=== PATIENT | male | born 1995 | race Caucasian/White ===

== ENCOUNTER 2022-06-02 08:14 | Emergency (ER) | payer BC, SELFPAY ==
[2022-06-02 08:15] VITALS: BP 155/81; PULSE 73; RESP 14; TEMP 36.6; O2SAT 98; BMI 22.2
[2022-06-02 08:30] VITALS: BP 134/93; PULSE 65; RESP 25; O2SAT 98
[2022-06-02] MEDS: DiphenhydrAMINE 50 MG/ML Syringe 25 MG IV (08:31)
[2022-06-02] MEDS: predniSONE 20 MG Tablet 60 MG PO (08:31)
--- NOTE | 2022-06-02 08:32 | EX.ED.DYSGE1 ---
HPI History of Present Illness Chief Complaint: Allergic Reaction Detail of Chief Complaint: Allergic reaction Informant: patient Onset/Context/Timing Onset: Days (Onset approximately 3 days ago) Context: Sudden Onset Timing: Continuous Quality: Raised erythematous pruritic generalized rash Location: Initially left upper extremity now generalized Current Severity: Moderate Maximum Severity: Moderate Worsened by: Itching Relieved by: Nothing Associated Symptoms Associated Symptoms: No symptoms of angioedema, respiratory, orthostasis, GI etc. Narrative Narrative: Patient is a 26-year-old male who presents with pruritic erythematous raised rash that started approximately 3 days ago. He has no inciting antigen to his knowledge. He denies ingestion of peanuts, shellfish or berries in the past several days. He denies prior allergic reaction. He denies swelling of his lips, tongue or throat. He denies change in voice or drooling. He denies shortness of breath or wheezing. He denies chest discomfort, lightheadedness or low blood pressure. He denies abdominal pain, vomiting or diarrhea. He states he took a Benadryl with no improvement. He has never been allergy tested. He does not know who his doctor is. Prior similar symptoms: No Recent Illness/Hospitalization: No PFSH PFSH Medical History no medical history no medical history Home Medications diphenhydramine HCl 25 mg capsule (Benadryl) 25 mg PO Q6H #20 caps 06/02/22 [Rx Last Taken Unknown] famotidine 20 mg tablet (Pepcid) 20 mg PO BID #10 tabs 06/02/22 [Rx Last Taken Unknown] Allergy/AdvReac Type Severity Reaction Status Date / Time No Known Allergies Allergy Verified 06/02/22 08:17 Surgical History no surgical history no surgical history Social History (Updated 06/02/22 @ 08:[address] Ronn Marcus MD) household members: none Smoking Status: Never smoker substance use type: does not use ROS ROS ED Constitutional Constitutional ED: Denies chills, fever(s), subjective, sweats or weight loss Eyes Eyes: Denies blurry vision, change in vision or diplopia ENT ENT ED: Denies ear pain, rhinorrhea or sore throat Cardiovascular Cardiovascular: Denies chest pain Respiratory/Chest Respiratory/Chest: Denies cough, dyspnea or dyspnea on exertion Gastrointestinal Gastrointestinal: Denies abdominal pain, diarrhea, nausea or vomiting Musculoskeletal Musculoskeletal: Denies arthralgias, back pain, myalgias or neck pain Integumentary Reports rash Neurologic Neurologic: Denies headache(s), paresthesias or weakness Hematologic/Lymphatic Hematologic/Lymphatic: Reports systems reviewed and no addt'l complaints, except as documented Allergic/Immunologic Allergic/Immunologic ED: Reports urticaria; Denies mouth swelling or tongue swelling EXAM Physical Exam Const Vital Signs: 06/02/22 08:15 06/02/22 08:30 Temperature 97.9 F Temperature Source Temporal Pulse Rate 73 65 Respiratory Rate 14 25 H Blood Pressure 155/81 H 134/93 H Blood Pressure Mean 105 106 Pulse Ox 98 98 Oxygen Delivery Method Room Air Room Air Positive well nourished and well developed General Appearance ED: well developed and NAD; Negative for pallor HEENT Reports moist mucous membranes HEENT Narrative: There is no evidence of angioedema. Ears normal. Nares patent. Posterior pharynx erythema or exudate. Eyes PERRL and EOMs intact bilaterally Eyes Narrative: Conjunctive is pink. There is no evidence of inflammation. General Eye ED: Negative for pale conjunctiva or scleral icterus Neck no lymphadenopathy, supple and no JVD Neck Narrative: Trachea is midline. There is no inspiratory stridor. Chest Wall inspection of chest normal and palpation of chest normal Resp normal respiratory effort and clear to auscultation bilaterally Cardio regular rate, regular rhythm, S1 normal heart sound, S2 normal heart sound and no murmurs GI normal to inspection, nondistended, normoactive bowel sounds, non-tender, non-distended and no masses; Negative for hepatosplenomegaly Back/Spine no CVA tenderness Extremity normal to inspection Neuro oriented x3, CN's II-XII intact bilaterally and no sensory deficits noted Sensorium / Orientation: alert Psych mental status grossly normal Skin no wounds and skin turgor normal Skin Narrative: Patient has a erythematous blanching raised pruritic rash involving the extremities and torso. General Skin Exam: elasticity normal; Negative for jaundice or pallor MDM MDM MDM Narrative Medical decision making narrative: Patient presents with urticaria that has gotten worse. The inciting agent is unknown. Patient was treated with IV Benadryl and Pepcid and p.o. prednisone. Since there is no hemodynamic instability, respiratory symptoms or angioedema epinephrine was not administered. Review of outside records using [facility] indicates patient's had GI work-up. Review of documents indicates patient has no allergies. GI work-up was unremarkable. Patient was reexamined at 0900. His rash has improved markedly. He is no longer itching. He has had 75% resolution. He was discharged with prescription for H1 and H2 gonzalo and instructed to follow-up with his doctor for allergy testing. Discharge Plan Triage Chief Complaint: Allergic Reaction ED Provider: Ronn Marcus Dx/Rx/DC Orders Clinical Impression: Urticaria of unknown origin Instructions: ED Hives (Adult) Prescriptions: New famotidine [Pepcid] 20 mg tablet 20 mg PO BID Qty: 10 0RF diphenhydramine HCl [Benadryl] 25 mg capsule 25 mg PO Q6H Qty: 20 0RF Primary Care Provider: Care Physician,No Primary Referrals: Care Physician,No Primary [Primary Care Provider] - Doctor,Your [Non-Staff] - 3-5 Days Activity Restrictions/Additional Instructions: The name of your doctor is located on your insurance card Recommend calling for outpatient allergy testing. Disposition Disposition: Home, Self Care
[2022-06-02] MEDS: Famotidine 200 MG/20 ML MDV 20 MG in 0.9% Normal Saline (Pres. free 8 ML 300 MG IV (08:44)
[2022-06-02 09:13] VITALS: BP 124/71; PULSE 69; RESP 17; O2SAT 95
== END 2022-06-02 09:14 | disposition home or self-care (01) ==
PROVIDERS: Emergency Provider Emergency Medicine; Visit Provider Emergency Medicine
DX: T78.40XA Allergy, unspecified, initial encounter (principal); L50.9 Urticaria, unspecified; X58.XXXA Exposure to other specified factors, initial encounter
CPT/HCPCS: 96365; 96375; 99283; A4216; J3490

== ENCOUNTER 2022-06-03 05:30 | Emergency (ER) | payer BC, SELFPAY ==
[2022-06-03 05:30] VITALS: BP 163/81; PULSE 84; RESP 20; TEMP 36.8; O2SAT 100; BMI 25.5
--- NOTE | 2022-06-03 05:55 | EX.ED.DYSGE1 ---
HPI History of Present Illness Chief Complaint: Shortness of Breath Narrative Narrative: Patient is a 26-year-old male with no reported significant past medical history . He was seen yesterday secondary to hives and diagnosed with urticaria and placed on Pepcid and Benadryl. He states that he was going through his house and he cannot think of any new exposures and he states no one else has the rash. He states that he was given Pepcid and Benadryl in the ER and his symptoms resolved and then he took it later that evening. He states he woke however with increased itching and rash and felt slightly short of breath. He states that this shortness of breath was new compared to yesterday and this concerned him so he presents to the ER for evaluation. PFSH PFSH Medical History no medical history no medical history Home Medications diphenhydramine HCl 25 mg capsule (Benadryl) 25 mg PO Q6H #20 caps 06/02/22 [Rx Last Taken Unknown] famotidine 20 mg tablet (Pepcid) 20 mg PO BID #10 tabs 06/02/22 [Rx Last Taken Unknown] prednisone 20 mg tablet 40 mg PO DAILY 5 days #10 tabs 06/03/22 [Rx Last Taken Unknown] Allergy/AdvReac Type Severity Reaction Status Date / Time No Known Allergies Allergy Verified 06/03/22 05:35 Social History (Updated 06/02/22 @ 08:[address] Ronn Marcus MD) household members: none Smoking Status: Current every day smoker tobacco type: e-cigarettes substance use type: does not use ROS ROS ED Constitutional Constitutional ED: Denies chills or fever(s) ENT ENT ED: Denies sore throat Cardiovascular Cardiovascular: Denies chest pain Respiratory/Chest Respiratory/Chest: Reports dyspnea; Denies cough Gastrointestinal Gastrointestinal: Denies abdominal pain, diarrhea, nausea or vomiting Genitourinary Genitourinary ED: Denies dysuria Musculoskeletal Musculoskeletal: Denies myalgias Integumentary Reports rash Neurologic Neurologic: Denies headache(s) Hematologic/Lymphatic Hematologic/Lymphatic: Denies easy bleeding or easy bruising EXAM Physical Exam Const Vital Signs: 06/03/22 05:30 06/03/22 05:30 Temperature 98.3 F Temperature Source Oral Pulse Rate 84 Respiratory Rate 20 H Respiratory Effort Short of Breath Respiratory Depth Shallow Respiratory Pattern Tachypnea Blood Pressure 163/81 H Blood Pressure Mean 108 Pulse Ox 100 Oxygen Delivery Method Room Air Room Air Positive well nourished and well developed General Appearance ED: well developed HEENT Reports moist mucous membranes HEENT Narrative: No tongue or lip swelling. No oral lesions. No airway edema or compromise Eyes PERRL and EOMs intact bilaterally Neck supple Resp normal respiratory effort and clear to auscultation bilaterally Cardio regular rate and regular rhythm Extremity normal to inspection Neuro oriented x3 and CN's II-XII intact bilaterally Sensorium / Orientation: alert Psych mental status grossly normal Skin Skin Narrative: Patient has erythematous blanchable urticaria present on bilateral arms his chest and abdomen as well as back and legs. There are also lesions across his face. However there is no involvement of the palms or soles. No vesicular or pustule changes. No secondary changes to suggest infection MDM MDM MDM Narrative Medical decision making narrative: Patient presented to the ER in no acute respiratory distress satting 100% on room air and speaking in full sentences. He did have urticaria present on his body which is consistent with his report and diagnosis from the previous day. He states that he does not know of any new exposure at home and that no one else has the rash. The rash at this time looks very inflammatory and not infectious in nature and without signs of respiratory distress or oral lesions I do not feel there is need for work-up concerning infectious process such as erythema multiforme Henoch-Burt?nlein purpura or Freire-Deepak syndrome. Patient will be given Benadryl and Pepcid as he states this helped him yesterday and prednisone will be added. At this time as he is not requiring supplemental oxygen or in respiratory distress there is no need for further treatment or work-up and he is otherwise safe for discharge Discharge Plan Triage Chief Complaint: Shortness of Breath ED Provider: Aries Hassan Dx/Rx/DC Orders Clinical Impression: Urticaria of unknown origin Instructions: ED Russell (Adult) Prescriptions: New prednisone 20 mg tablet 40 mg PO DAILY 5 Days Qty: 10 0RF No Action famotidine [Pepcid] 20 mg tablet 20 mg PO BID Qty: 10 0RF diphenhydramine HCl [Benadryl] 25 mg capsule 25 mg PO Q6H Qty: 20 0RF Primary Care Provider: Care Physician,No Primary Referrals: Delia Horta MD [Med Staff - Director Of Physician Practices] - Care Physician,No Primary [Primary Care Provider] - Activity Restrictions/Additional Instructions: You were given your daily dose of steroids/prednisone and Pepcid in the ER today. You may take Benadryl another 2 or 3 times a day if needed. You can use the inhaler up to 6 times a day or every 4 hours if you feel short of breath. Please continue to take your steroid Pepcid and Benadryl for the next 5 days to help prevent any further allergic reaction or rebound. Please return to the ER should you have any further concerns Disposition Disposition: Home, Self Care
[2022-06-03] MEDS: Albuterol Sulfate 8 gm Inhaler (60 puffs) 2 PUFF INHALATION (05:59)
[2022-06-03] MEDS: predniSONE 20 MG Tablet 60 MG PO (05:59)
[2022-06-03] MEDS: Famotidine 20 MG Tablet 40 MG PO (06:00)
[2022-06-03] MEDS: DiphenhydrAMINE 25 MG Capsule 50 MG PO (06:00)
== END 2022-06-03 06:11 | disposition home or self-care (01) ==
PROVIDERS: Emergency Provider Emergency Medicine; Visit Provider Emergency Medicine
DX: R06.02 Shortness of breath (principal); F17.290 Nicotine dependence, other tobacco product, uncomplicated; L50.9 Urticaria, unspecified; Z79.52 Long term (current) use of systemic steroids
CPT/HCPCS: 99283

== ENCOUNTER 2022-09-23 15:22 | Emergency (ER) | payer BC, SELFPAY ==
[2022-09-23 15:23] VITALS: BP 131/78; PULSE 84; RESP 19; TEMP 36.8; O2SAT 98; BMI 24.9
--- NOTE | 2022-09-23 15:29 | EDS_ITS ---
HPI <LLOYD Lott - Last Filed: 09/23/22 16:05> History of Present Illness Chief Complaint: Dental Narrative Narrative: Patient having a couple days of pain in his right lower molar. It is partially missing and its caused infections in the past. He is not able to get in the dentist. No fever chills nausea vomiting or difficulty swallowing or breathing. PFSH <LLOYD Lott Last Filed: 09/23/22 16:05> PFSH Medical History no medical history Home Medications diphenhydramine HCl 25 mg capsule (Benadryl) 25 mg PO Q6H #20 caps 06/02/22 [Rx Last Taken Unknown] famotidine 20 mg tablet (Pepcid) 20 mg PO BID #10 tabs 06/02/22 [Rx Last Taken Unknown] prednisone 20 mg tablet 40 mg PO DAILY 5 days #10 tabs 06/03/22 [Rx Last Taken Unknown] penicillin V potassium 500 mg tablet 500 mg PO 4X/DAY #40 tabs 09/23/22 [Rx Last Taken Unknown] Allergy/AdvReac Type Severity Reaction Status Date / Time No Known Allergies Allergy Verified 06/03/22 05:35 Social History (Updated 06/02/22 @ 08:[address] Ronn Marcus MD) household members: none Smoking Status: Current every day smoker tobacco type: e-cigarettes substance use type: does not use ROS <LLOYD Lott - Last Filed: 09/23/22 16:05> ROS ED ROS Narrative Constitutional: Negative for fever, chills, malaise. ENT: Negative for sore throat. CVS: Negative for chest pain. Respiratory: Negative for shortness of breath. GI: Negative for nausea, vomiting. Neuro: Negative for headache. EXAM <LLOYD Lott Last Filed: 09/23/22 16:05> Physical Exam Narrative Exam Narrative: CONST: Patient sitting in no acute distress. EYES: Normal inspection. ENT: Poor dentition, right lower back molar is partially missing and has caries. Tender to palpation, no periapical abscess, sublingual space is soft, no trismus or tongue elevation, uvula midline with airway patent, no drooling or stridor. NECK: Normal inspection. Trachea midline. RESP: No respiratory distress, CTAB. CVS: Regular rate and rhythm, no murmur, no gallop. SKIN: Color normal, no rash, warm, dry, intact. EXTREMITIES: Normal appearance, no pedal edema. NEURO: Oriented x4. PSYCH: Normal affect. Const Vital Signs: 09/23/22 15:23 Temperature 98.2 F Temperature Source Temporal Pulse Rate 84 Respiratory Rate 19 H Blood Pressure 131/78 H Blood Pressure Mean 95 Pulse Ox 98 Oxygen Delivery Method Room Air <Dr. Maribel Yu DO - Last Filed: 09/23/22 17:18> Physical Exam Const Vital Signs: 09/23/22 15:23 Temperature 98.2 F Temperature Source Temporal Pulse Rate 84 Respiratory Rate 19 H Blood Pressure 131/78 H Blood Pressure Mean 95 Pulse Ox 98 Oxygen Delivery Method Room Air [facility] <LLOYD Lott - Last Filed: 09/23/22 16:05> [facility] Narrative Medical decision making narrative: Patient has poor dentition presenting with right lower molar pain. This tooth does appear to be partially missing and is tender but there is no sign of abscess. No Deangelo's angina. Airway patent. He will be started on penicillin and should continue Tylenol and ibuprofen. I provided dental referrals and he was discharged in stable condition. <Dr. Maribel Yu, - Last Filed: 09/23/22 17:18> [facility] Narrative Medical decision making narrative: Patient has poor dentition presenting with right lower molar pain. This tooth does appear to be partially missing and is tender but there is no sign of abscess. No Deangelo's angina. Airway patent. He will be started on penicillin and should continue Tylenol and ibuprofen. I provided dental referrals and he was discharged in stable condition. I have personally performed a face to face assessment of the patient and have reviewed the LISA Note. I performed a substantive portion of the visit including all aspects of the following. My alejo findings include: History is patient is a 27-year-old male presenting with worsening left lower dental pain in the area of his third molar. He does smoke cigarettes. He has known poor dentition. No significant swelling of his jaw or mouth. No difficulty swallowing. No change in speech. Patient is hoping to receive antibiotics to prevent this from getting worse. Patient be treated as a dental abscess. Given dental referral sheet. Counseled that he really should quit smoking as this is making his dental problems worse. He verbalizes agreement nursing this plan. Discharged home in stable condition. Is given return precautions. Other additions or changes: [None] Discharge Plan Triage Chief Complaint: Dental ED Midlevel Provider: Josette Boyce ED Provider: Maribel Yu Dx/Rx/DC Orders Clinical Impression: Dental abscess Instructions: Dental Abscess Prescriptions: New penicillin V potassium 500 mg tablet 500 mg PO 4X/DAY Qty: 40 0RF No Action famotidine [Pepcid] 20 mg tablet 20 mg PO BID Qty: 10 0RF diphenhydramine HCl [Benadryl] 25 mg capsule 25 mg PO Q6H Qty: 20 0RF prednisone 20 mg tablet 40 mg PO DAILY 5 Days Qty: 10 0RF Primary Care Provider: Care Physician,No Primary Referrals: Care Physician,No Primary [Primary Care Provider] - Activity Restrictions/Additional Instructions: Take the antibiotics and continue Tylenol and ibuprofen as needed. Follow-up with a dentist. Disposition Disposition: Home, Self Care Discharge Date/Time: 09/23/22 16:14
== END 2022-09-23 16:14 | disposition home or self-care (01) ==
PROVIDERS: Emergency Provider Emergency Medicine; Visit Provider Emergency Medicine
DX: K04.7 Periapical abscess without sinus (principal); F17.290 Nicotine dependence, other tobacco product, uncomplicated; F17.210 Nicotine dependence, cigarettes, uncomplicated
CPT/HCPCS: 99282

== ENCOUNTER 2022-09-25 07:30 | Emergency (ER) | payer BC, SELFPAY ==
[2022-09-25 07:32] VITALS: BP 154/92; PULSE 88; RESP 16; TEMP 36.6; O2SAT 99; BMI 24.3
--- NOTE | 2022-09-25 08:11 | EX.ED.VIS.UR ---
HPI HPI - URI History of Present Illness Chief Complaint: Sore Throat Onset/Context/Timing Onset: Days (5) Context: Gradual Onset Timing: Continuous Quality: Throbbing Location: Right jaw and neck Worsened by: Swallowing and Eating Solids Relieved by: - (Nothing) Associated Symptoms Associated Symptoms: Positive for Headache, Nausea, Shortness of Breath and Chest Pain; Negative for Nasal Congestion, Sinus Pressure, Myalgias, Vomiting, Diarrhea, Nonproductive cough, Hemoptysis or Productive Cough Narrative Narrative: Patient presents with a sore throat that has been getting worse over the past 5 days. Patient states he was recently started on penicillin for a dental infection. Patient states that he began feeling nauseated after taking the penicillin. Patient states his pain is now spreading to the right side of his neck. Patient states it is worse with swallowing. Patient describes his pain as throbbing. Patient states nothing makes it better. Patient admits to occasional pain in the right side of his chest. Patient also admits to occasional shortness of breath. ROS ROS ED Constitutional Constitutional ED: Reports chills and subjective; Denies fever(s) Eyes Eyes: Denies blurry vision or change in vision ENT ENT ED: Denies rhinorrhea or sore throat Cardiovascular Cardiovascular: Reports chest pain; Denies palpitations Respiratory/Chest Respiratory/Chest: Reports dyspnea; Denies cough Gastrointestinal Gastrointestinal: Reports nausea; Denies vomiting Genitourinary Genitourinary ED: Denies dysuria or hematuria Musculoskeletal Musculoskeletal: Reports neck pain; Denies back pain Integumentary Denies abscess or rash Neurologic Neurologic: Denies headache(s) or weakness Allergic/Immunologic Allergic/Immunologic ED: Denies mouth swelling or urticaria PFSH PFSH Medical History no medical history Home Medications diphenhydramine HCl 25 mg capsule (Benadryl) 25 mg PO Q6H #20 caps 06/02/22 [Rx Last Taken Unknown] famotidine 20 mg tablet (Pepcid) 20 mg PO BID #10 tabs 06/02/22 [Rx Last Taken Unknown] prednisone 20 mg tablet 40 mg PO DAILY 5 days #10 tabs 06/03/22 [Rx Last Taken Unknown] amoxicillin 875 mg-potassium clavulanate 125 mg tablet 875 mg PO Q12H #20 TABLETS 09/25/22 [Rx Last Taken Unknown] Allergy/AdvReac Type Severity Reaction Status Date / Time No Known Allergies Allergy Verified 06/03/22 05:35 Surgical History (Updated 09/25/22 @ 08:[address] Geo Frausto DO) S/P tendon repair Social History household members: none Smoking Status: Current every day smoker tobacco type: e-cigarettes substance use type: does not use EXAM Physical Exam Const Vital Signs: 09/25/22 07:32 Temperature 97.8 F Temperature Source Temporal Pulse Rate 88 Respiratory Rate 16 Blood Pressure 154/92 H Blood Pressure Mean 112 Pulse Ox 99 Oxygen Delivery Method Room Air Positive well nourished and well developed General Appearance ED: well developed and NAD HEENT Reports moist mucous membranes HEENT Narrative: Oropharynx is erythematous. There are no exudates noted. There is no unilateral swelling of the tonsils. Airway is patent. There is no trismus. normocephalic Neck supple, no meningeal signs and no JVD Neck Narrative: There is mild tenderness just below the angle of the jaw on the right. There is some mild lymphadenopathy in this area. There is no erythema or warmth. General: lymphadenopathy anterior cervical Resp normal respiratory effort and clear to auscultation bilaterally Cardio Rate: regular rate Rhythm: regular rhythm Neuro oriented x3, CN's II-XII intact bilaterally and no sensory deficits noted Sensorium / Orientation: alert Motor Exam: strength 5/5 throughout MDM MDM MDM Narrative Medical decision making narrative: Differential diagnosis includes peritonsillar abscess, submandibular abscess, pharyngitis, and dental infection. CT scan of the soft tissue neck will be obtained to assess for abscess. CBC will be obtained to assess for leukocytosis and anemia. Basic metabolic profile will be obtained to assess for renal function and electrolyte abnormality. Lab Data Attestation: I reviewed the patient's lab results. Lab results narrative: CBC was reviewed and shows a mild leukocytosis of 13.7. Basic metabolic profile was reviewed and was within normal limits. Labs: Laboratory Results - last 24 hr 09/25/22 09/25/22 08:20 08:20 WBC 13.7 H RBC 4.99 Hgb 14.0 Hct 42.1 MCV 84.4 MCH 28.1 MCHC 33.3 RDW Std Deviation 40.0 RDW Coeff of Dania 13.0 Plt Count 291 MPV 9.3 Immature Gran % (Auto) 0.400 Neut % (Auto) 68.9 Lymph % (Auto) 21.7 [place] % (Auto) 7.7 Eos % (Auto) 1.0 Baso % (Auto) 0.3 Absolute Neuts (auto) 9.4 H Absolute Lymphs (auto) 2.97 Nucleated RBC % 0 Sodium 138 Potassium 3.9 Chloride 105 Carbon Dioxide 27.0 Anion Gap 6 BUN 20 H Creatinine 0.89 Estim Creat Clear Calc 128.73 Est GFR (MDRD) Af Amer 131 Est GFR (MDRD) Non-Af 108 BUN/Creatinine Ratio 22.4 H Glucose 94 Calcium 9.6 Radiography Diagnostic Testing: Clinical Impression(s) from Imaging Studies Soft Tissue Neck CT 09/25/22 08:17 IMPRESSION: Focal area of nondescript contrast enhancement is seen in the right infratemporal region. No definite abscess or mass effect is seen. No bony destruction is present. Electronically Signed: Brijesh Cancino MD at 9:07 EDT , CT scan of the soft tissue neck was obtained. There is a focal area of nondescript contrast-enhancement in the right infratemporal area. There is no abscess or mass noted. There is no bony destruction noted. This was interpreted by the radiologist and was also independently reviewed by myself. Treatment and Re-Evaluation Narrative: Patient was given IV fluids. Patient was given a dose of Unasyn. Patient is feeling better on reevaluation. Patient was instructed to stop the Pen-Vee K. Patient was given a prescription for Augmentin. Patient was instructed to follow-up with his primary care physician in 5 to 7 days. Patient was also instructed to follow-up with his dentist. Patient understood and was agreeable with the plan. All questions were answered. Discharge Plan Triage Chief Complaint: Sore Throat ED Provider: Geo Frausto Dx/Rx/DC Orders Clinical Impression: Dental abscess, Tobacco use Instructions: ED Dental Abscess Prescriptions: New amoxicillin-pot clavulanate [amoxicillin-pot clavulanate] 875-125 mg tablet 875 mg PO Q12H Qty: 20 0RF Discontinued penicillin V potassium 500 mg tablet 500 mg PO 4X/DAY Qty: 40 0RF No Action famotidine [Pepcid] 20 mg tablet 20 mg PO BID Qty: 10 0RF diphenhydramine HCl [Benadryl] 25 mg capsule 25 mg PO Q6H Qty: 20 0RF prednisone 20 mg tablet 40 mg PO DAILY 5 Days Qty: 10 0RF Primary Care Provider: Care Physician,No Primary Referrals: Care Physician,No Primary [Primary Care Provider] - Disposition Disposition: Home, Self Care
--- NOTE | 2022-09-25 08:17 | CT_ITS ---
STUDY: CT SOFT TISSUE NECK WITH CONTRAST REASON FOR EXAM: Male, 27 years old. Palpable lump in the right side of the neck. Dental infection. RADIATION DOSAGE (If Supplied By Facility): CTDIvol = ( 15.91 ) mGy, DLP = ( 476.97 ) mGycm TECHNIQUE: The patient was scanned in a multi-detector CT scanner. High resolution transaxial imaging was performed following intravenous administration of IV 75mL Isovue-370. Sagittal and coronal images were reconstructed. Individualized dose optimization techniques were used for this CT. COMPARISON: None. FINDINGS: Normal bilateral parotid glands. Normal bilateral tank charger spaces. Normal bilateral parapharyngeal spaces. Normal bilateral carotid spaces. Normal bilateral sublingual and submandibular glands and spaces. Ill-defined area of the contrast enhancement is seen in the right infratemporal fossa. No paola mass is seen. No bony destruction is present. Normal visualized nasopharynx. Normal retropharyngeal space. Normal perivertebral space. Normal visualized bilateral faucial tonsils. The visualized tongue, tongue base and oropharynx are normal. The visualized cervical lymph nodes (levels I-) are within normal size limits, and maintain normal morphology. There is no demonstrated solid or cystic mass lesion. There is no abnormal contrast enhancement. Normal epiglottis, bilateral vallecula and hypopharynx. The pre-epiglottic and paraglottic adipose spaces are normal. Normal visualized bilateral piriform sinuses, aryepiglottic folds, vocal cords, and arytenoid-cricoid articulations. Normal subglottic trachea. Normal bilateral lobes of the thyroid gland. Normal visualized pulmonary apices. Normal visualized paranasal sinuses. Normal visualized cervical spine. CT/Soft Tissue Neck WITH Contrast IMPRESSION: Focal area of nondescript contrast enhancement is seen in the right infratemporal region. No definite abscess or mass effect is seen. No bony destruction is present. Electronically Signed: Brijesh Cancino MD at 9:07 EDT ,
[2022-09-25 08:36] LABS: Absolute Lymphocyte Count 2.97 X10^3/uL (0.83-4.51); Absolute Neutrophil Count 9.4 X10^3/uL (2.0-7.7); Basophil# 0.04 X10^3/uL; Basophil% 0.3 % (0-1); Eosinophil# 0.13 X10^3/uL; Hematocrit 42.1 % (40-54); Lymphocyte # 2.97 X10^3/ul (0.83-4.51); Lymphocyte % 21.7 % (19-41); Mean Corp Hgb Conc 33.3 g/dL (32-36); Mean Corpuscular Hgb 28.1 pg (27.0-32.0); Mean Corpuscular Volume 84.4 fL (80-94); Mean Platelet Vol. 9.3 fl (6.2-12.0); Monocyte# 1.05 X10^3/uL; Monocyte% 7.7 % (0-10); NRBC Flagged by Analyzer 0 % (0-5); Neutrophil # 9.42 X10^3/uL (2.7-7.7); Neutrophil % 68.9 % (47-70); Platelet Count 291 K/mm3 (150-450); Red Blood Count 4.99 M/mm3 (4.6-6.2); White Blood Count 13.7 K/mm3 (4.4-11.0)
[2022-09-25] MEDS: 0.9% Normal Saline 1,000 ML 1000 ML IV (08:50)
[2022-09-25 08:52] LABS: Anion Gap 6 (5-15); BUN 20 mg/dL (7-18); BUN/Creat Ratio 22.4 RATIO (10-20); Calcium,Total 9.6 mg/dL (8.5-10.1); Chloride 105 mmol/L (98-107); Creatinine, Serum 0.89 mg/dL (0.70-1.30); EST Glomerular Filtration Rate 108 mL/min (>60); Est Glom Filt Rate - Afr Amer 131 mL/min (>60); Estimated Creatinine Clearance 128.73 ml/min; Glucose 94 mg/dL (74-106); Potassium 3.9 mmol/L (3.5-5.1); Sodium Level 138 mmol/L (136-145)
[2022-09-25 09:52] VITALS: BP 122/74; PULSE 68; RESP 15; O2SAT 99
== END 2022-09-25 09:53 | disposition home or self-care (01) ==
PROVIDERS: Emergency Provider Emergency Medicine; Visit Provider Emergency Medicine
DX: K04.7 Periapical abscess without sinus (principal); R06.02 Shortness of breath; R51.9 Headache, unspecified; J02.9 Acute pharyngitis, unspecified; R07.9 Chest pain, unspecified; F17.290 Nicotine dependence, other tobacco product, uncomplicated
CPT/HCPCS: 70491; 80048; 85025; 96365; 99283; Q9967; A4216; J0295

== ENCOUNTER 2022-11-30 00:18 | Emergency (ER) | payer OTHER, BC, SELFPAY ==
[2022-11-30 00:19] VITALS: BP 135/86; PULSE 74; RESP 18; TEMP 36.4; O2SAT 98; BMI 23.8
[2022-11-30 01:05] VITALS: PULSE 68; RESP 15; O2SAT 98
--- NOTE | 2022-11-30 01:06 | EDS_ITS ---
HPI History of Present Illness Chief Complaint: Back Informant: patient Narrative Narrative: Patient is a 27-year-old male no significant past medical history presenting with acute worsening of left-sided back pain rating to his ribs. 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 He states they were a anywhere to a couple pounds up to 40 to 50 pounds. 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 Yesterday he was having back pain throughout his shift however it got worse throughout the day and was not relieved with rest. He is taken NSAIDs with no relief. He states it feels like it comes from his left shoulder blade and goes around to his chest. He states if he is picking something up or doing certain movement he will feel like his chest is going to pop. He has been trying Lidoderm cream on his chest all day with no relief. 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 Denies any new trauma or injury. Denies any rash. Denies any difficulty breathing. No other complaints at this time. PFSH PFSH Allergy/AdvReac Type Severity Reaction Status Date / Time No Known Allergies Allergy Verified 11/30/22 00:24 Surgical History S/P tendon repair Social History household members: none Smoking Status: Current every day smoker tobacco type: e-cigarettes substance use type: does not use ROS ROS ED Constitutional Constitutional ED: Denies chills or fever(s) Cardiovascular Cardiovascular: Reports chest pain; Denies palpitations Respiratory/Chest Respiratory/Chest: Denies dyspnea Gastrointestinal Gastrointestinal: Denies abdominal pain Musculoskeletal Musculoskeletal: Reports back pain; Denies arthralgias or neck pain Integumentary Denies rash Neurologic Neurologic: Denies headache(s) EXAM Physical Exam Const Vital Signs: 11/30/22 00:19 Temperature 97.5 F L Temperature Source Temporal Pulse Rate 74 Respiratory Rate 18 Blood Pressure 135/86 H Blood Pressure Mean 102 Pulse Ox 98 Oxygen Delivery Method Room Air Positive well nourished and well developed General Appearance ED: well developed and NAD HEENT Reports moist mucous membranes Eyes PERRL Neck supple Neck Narrative: Normal range of motion General: Negative for tenderness Chest Wall Chest Narrative: No chest wall crepitus. No deformity. Tenderness palpation of the left thoracic area rating around to the chest around approximately rib 7 through 9. Resp normal respiratory effort and clear to auscultation bilaterally Cardio regular rate, regular rhythm and no murmurs GI normal to inspection, nondistended, normoactive bowel sounds Back/Spine normal to inspection Back/Spine Narrative: No midline thoracic or lumbar tenderness to palpation Cervical Spine: Negative for cervical spine tenderness Thoracic Spine / Upper Back: paraspinal muscle tenderness left T7, T8 and T9 Extremity normal to inspection Neuro oriented x3 Sensorium / Orientation: alert Psych mental status grossly normal Skin no rashes or lesions noted and no wounds MDM MDM MDM Narrative Medical decision making narrative: Patient evaluated for worsening pain in his left back around to his chest. It is gradual onset and I do not suspect pneumothorax. His normal vital signs with normal O2 saturation and normal breath sounds. No overlying rash suggestive of shingles. No trauma. I do not think an x-ray is indicated at this time. Patient took NSAIDs prior to arrival. He has been trying Lidoderm with no relief so he declined a Lidoderm patch in the emergency room. He will be given weight restrictions for return to work and first report of injury form is started for the patient for Workmen's Comp. Counseled to continue to alternate ibuprofen and Tylenol and rest the area. I suspect patient has a strain of his intercostal muscles which is what is causing his presentation. Discharge Plan Triage Chief Complaint: Back ED Provider: Maribel Yu Dx/Rx/DC Orders Clinical Impression: Intercostal muscle strain, Thoracic back pain Instructions: ED Back Sprain/Strain, ED Chest Wall Strain Stand Alone Forms: Work Status Form Primary Care Provider: Care Physician,No Primary Referrals: Corporate,Care [Group of Physicians] - 3-5 Days Care Physician,No Primary [Primary Care Provider] - Activity Restrictions/Additional Instructions: Ice the area. Rest is much as possible. Alternate ibuprofen and Tylenol for pain. Disposition Disposition: Home, Self Care
== END 2022-11-30 01:55 | disposition home or self-care (01) ==
PROVIDERS: Emergency Provider Emergency Medicine; Visit Provider Emergency Medicine
DX: S39.012A Strain of muscle, fascia and tendon of lower back, initial encounter (principal); M54.6 Pain in thoracic spine; R07.81 Pleurodynia; F17.290 Nicotine dependence, other tobacco product, uncomplicated; X50.3XXA Overexertion from repetitive movements, initial encounter; Y99.0 Civilian activity done for income or pay
CPT/HCPCS: 99282

== ENCOUNTER 2023-03-13 01:29 | Emergency (ER) | payer BC, SELFPAY ==
[2023-03-13 01:30] VITALS: BP 120/78; PULSE 96; RESP 18; TEMP 36.7; O2SAT 98; BMI 24.9
--- NOTE | 2023-03-13 01:50 | EDS_ITS ---
HPI History of Present Illness Chief Complaint: Rash Informant: patient Narrative Narrative: Patient is a 27-year-old male with no significant past medical history. He states he has had a red pruritic rash to his bilateral forearms and hands for approximately 1 month. He states he was seen at an urgent care and they placed him on a Medrol Dosepak which he took for a week with minimal symptom improvement. He states he lives with other people and no one else at home has the rash. He states that he is constantly exposed to chemicals at his work but that he has been doing this for the past year without any irritation or rash. Other than this exposure at work he denies any new antigen/inciting exposure. He denies any difficulty breathing or swallowing he denies any fevers or chills but as the rashes been persistent he presents for evaluation. PFSH PFSH no medical history Home Medications desonide 0.05 % topical cream 1 applic topical TID PRN skin irritation #60 grams 03/13/23 [Rx Last Taken Unknown] famotidine 40 mg tablet (Pepcid) 40 mg PO DAILY 14 days #14 tabs 03/13/23 [Rx Last Taken Unknown] prednisone 10 mg tablet 10 mg PO DAILY #63 tabs 03/13/23 [Rx Last Taken Unknown] Allergy/AdvReac Type Severity Reaction Status Date / Time No Known Allergies Allergy Verified 03/13/23 01:30 Surgical History S/P tendon repair Social History household members: none Smoking Status: Former smoker substance use type: does not use ROS ROS ED Constitutional Constitutional ED: Denies chills or fever(s) ENT ENT ED: Denies sore throat Cardiovascular Cardiovascular: Denies chest pain Respiratory/Chest Respiratory/Chest: Denies cough or dyspnea Gastrointestinal Gastrointestinal: Denies abdominal pain, diarrhea, nausea or vomiting Genitourinary Genitourinary ED: Denies dysuria Musculoskeletal Musculoskeletal: Denies myalgias Integumentary Reports rash Neurologic Neurologic: Denies headache(s) Hematologic/Lymphatic Hematologic/Lymphatic: Denies easy bleeding or easy bruising EXAM Physical Exam Const Vital Signs: 03/13/23 01:30 Temperature 98.1 F Temperature Source Temporal Pulse Rate 96 Respiratory Rate 18 Blood Pressure 120/78 Blood Pressure Mean 92 Pulse Ox 98 Positive well nourished and well developed General Appearance ED: well developed HEENT Reports moist mucous membranes HEENT Narrative: No tongue or lip swelling No oral lesions No airway edema or compromise Eyes PERRL and EOMs intact bilaterally Neck supple Resp normal respiratory effort and clear to auscultation bilaterally Cardio regular rate and regular rhythm Extremity normal to inspection Extremity Narrative: Rash to the bilateral forearms as documented below. Otherwise normal Neuro oriented x3, CN's II-XII intact bilaterally and no sensory deficits noted Sensorium / Orientation: alert Motor Exam: strength 5/5 throughout Psych mental status grossly normal Skin Skin Narrative: Patient has a erythematous blanchable rash to the bilateral forearms and dorsal aspect of the hand. There is slight extension into the proximal bicep/humerus region and also mild changes to the base of the posterior neck in the anterior aspect of each knee. The erythema has slight vesicular change to it and does have a distribution that falls into Kebner's lines which is most consistent with contact dermatitis. There is no involvement of the palms or soles. The rash is not present in the abdomen chest back or thigh and pelvic region. MDM MDM MDM Narrative Medical decision making narrative: Patient presented to the ER with stable vitals and reported a persistent rash over the past month. No one he lives with has the rash going against bedbugs or scabies exposure. He did not have any tongue or lip swelling or oral lesions there is no involvement of the palms or soles going against [id number] or potential rash from mononucleosis. As he did not have any respiratory distress or airway compromise there is no need for intubation. At this time as he reports he is exposed to chemicals onto his hands and forearms at work each night this is most likely the inciting agent of his skin changes. The fact is not improved is most likely related to his recurrent exposure. At this time he will be given Benadryl and Pepcid and prednisone and prescribed Pepcid prednisone and topical desonide for home to help with symptoms. However he understands as he is reexposed to the chemical at work that he will most likely have persistent symptoms and therefore he should take steps to ensure that there is no more skin exposure. Patient states he understands this and at this time is there is no obvious infectious process or respiratory issues he is otherwise safe for discharge History & Record Review Discussion w/independent historian: Patient Discharge Plan Triage Chief Complaint: Rash ED Provider: Aries Hassan Dx/Rx/DC Orders Clinical Impression: Contact dermatitis Instructions: ED Contact Dermatitis Prescriptions: New famotidine [Pepcid] 40 mg tablet 40 mg PO DAILY 14 Days Qty: 14 0RF prednisone 10 mg tablet 10 mg PO DAILY Qty: 63 0RF Rx Instructions: 60 mg p.o. daily for 3 days, 50 mg p.o. daily for 3 days, 40 mg p.o. daily for 3 days, 30 mg p.o. daily for 3 days, 20 mg p.o. daily for 3 days, 10 mg p.o. daily for 3 days. desonide 0.05 % cream 1 applic topical TID PRN (Reason: skin irritation) Qty: 60 1RF Primary Care Provider: Care Physician,No Primary Referrals: Steven Sandoval MD [Med Staff - Career Transition Specialist] - Care Physician,No Primary [Primary Care Provider] - Activity Restrictions/Additional Instructions: Your history and physical exam is consistent with contact dermatitis. The allergen is most likely the fluid/material you are exposed to at work. Please look into getting rubber waterproof gloves to cover your hands and forearms to help reduce your exposure and therefore prevent recurrence of the rash. Please return to the ER should you have any further concerns Disposition Disposition: Home, Self Care Discharge Date/Time: 03/13/23 02:02
[2023-03-13] MEDS: Famotidine 20 MG Tablet 40 MG PO (01:59)
[2023-03-13] MEDS: DiphenhydrAMINE 25 MG Capsule 50 MG PO (01:59)
[2023-03-13] MEDS: predniSONE 20 MG Tablet 60 MG PO (01:59)
== END 2023-03-13 02:02 | disposition home or self-care (01) ==
PROVIDERS: Emergency Provider Emergency Medicine; Visit Provider Emergency Medicine
DX: L25.9 Unspecified contact dermatitis, unspecified cause (principal); Z87.891 Personal history of nicotine dependence; Z79.52 Long term (current) use of systemic steroids
CPT/HCPCS: 99283